=== PATIENT | female | born 1955 | race Caucasian/White ===

== ENCOUNTER → 2020-07-08 | Day surgery (SDC) | payer MEDICARE, OTHER ==
[~2020-07-08] MED LIST: ANASTROZOLE1 MG PO; ATORVASTATIN CA40 MG PO; NOVOLIN 70100 UNIT/1 SQ
== END | disposition home or self-care (01) ==
LOC: EDSEX 06:22 → OR 06:22
DX: K29.50 Unspecified chronic gastritis without bleeding (principal); K21.9 Gastro-esophageal reflux disease without esophagitis; E11.9 Type 2 diabetes mellitus without complications; C50.919 Malignant neoplasm of unspecified site of unspecified female breast; E66.01 Morbid (severe) obesity due to excess calories; Z79.4 Long term (current) use of insulin; Z79.899 Other long term (current) drug therapy
CPT/HCPCS: 82962; J2001